=== PATIENT | female | born 1960 | race Caucasian/White ===

== ENCOUNTER → 2019-07-31 11:01 | Outpatient (CLI) | payer OTHER, SELFPAY ==
--- NOTE | ~2019-07-31 | XR_ITS ---
EXAMINATION: XR shoulder RT min 2V DATE: 07/31/2019 11:19 INDICATION: Right shoulder pain post fall TECHNIQUE: AP internally and externally rotated, AP oblique externally rotated and transscapular Y vi ews of the right shoulder were obtained. COMPARISON: None FINDINGS: Comminuted intra-articular fracture of the proximal right humerus. This includes an oblique fracture extending up to 13 cm distally from the apex of the humeral head into the proximal diaphysis. There i s also a fracture plane extending across the midportion of the articular surface with 8mm step off. M inimally displaced fracture across the base of the greater trochanter. Widening of the glenohumeral j oint space consistent with presence of a joint effusion. No other fractures. Normal alignment and min imal osteoarthritis at the acromioclavicular joint. IMPRESSION: Comminuted intra-articular fracture of the proximal right humerus with up to 8 mm step-off along a fr acture plane extending across the articular surface of the humeral head. Reviewed, dictated and finalized at location A. IMPRESSION: Comminuted intra-articular fracture of the proximal right humerus with up to 8 mm step-off along a fracture plane extending across the articular surface of th e humeral head.
== END ==
PROVIDERS: PCP Internal Medicine; Visit Provider Internal Medicine
DX: M25.519 Pain in unspecified shoulder (principal); S42.294A Other nondisplaced fracture of upper end of right humerus, initial encounter for closed fracture
CPT/HCPCS: 73030

== ENCOUNTER 2019-11-27 12:57 | Outpatient (CLI) | payer OTHER, SELFPAY ==
--- NOTE | ~2019-11-27 | US_ITS ---
US arterial ankle brachial ind INDICATION: Diabetes. High cholesterol. Discoloration of the lower extremities. Claudication. TECHNIQUE: Segmental pressures and plethysmographic and Doppler waveforms of the brachial and lower e xtremity arteries were obtained. COMPARISON: None. FINDINGS: Left brachial artery pressures of 182 mm Hg. There is a stent in the right arm and therefore pressure not obtained. The right ankle-brachial index (NOA) is 1.03 (normal >= 0.9-1.0). The right great toe-brachial index (TBI) is 0.7 (normal >= 0.60). The left NOA could not be obtained. The left TBI is 1.05 . There is biphasic flow lower extremity art eries bilaterally. IMPRESSION: 1. Normal right ankle and bilateral toe brachial indices. The left NOA could not be obtained. Reviewed, dictated and finalized at location A. IMPRESSION: 1. Normal right ankle and bilateral toe brachial indices. The left NOA could no t be obtained.
--- NOTE | ~2019-11-27 | MM_ITS ---
EXAMINATION: MM screening salas BI w margaret HISTORY: Screening mammogram TECHNIQUE: Craniocaudal and mediolateral oblique 3-D tomosynthesis images were obtained and synthetic 2-D images were generated. CAD analysis was submitted and interpreted. COMPARISON: , 06/2016, 10/22/2014 bilateral digital screening mammogram examinations BREAST PARENCHYMAL COMPOSITION: The breasts are almost entirely fatty. FINDINGS: There is no evidence of suspicious mass, calcification, or architectural distortion to sugg est malignancy in either breast. There has been no suspicious interval change. IMPRESSION: 1. No mammographic evidence of malignancy. 2. Recommend routine screening mammography in one year. BI-RADS Category 1: Negative Reviewed, dictated and finalized at location A.
== END 2019-11-27 12:58 | disposition home or self-care (01) ==
PROVIDERS: PCP Internal Medicine; Visit Provider Nurse Practitioner
DX: Z12.31 Encounter for screening mammogram for malignant neoplasm of breast (principal); I73.9 Peripheral vascular disease, unspecified
CPT/HCPCS: 77063; 77067; 93922

== ENCOUNTER 2021-03-25 07:17 | Outpatient (RCR) | payer OTHER, SELFPAY ==
[2021-02-25 09:44] VITALS: BMI 40.4
--- NOTE | 2021-02-25 09:53 | WPDWOUNDNOTE ---
Wound Care Note Date/Time: 02/25/21 09:53 Pt seen and examined in wound care clinic. Reports no further issues over last week. Pt reports no further drainage. Pt reports wound seems to be healing well. Assessment and Plan Assessment and plan (1) Chronic abdominal wound infection: Code(s): S31.109A - Unspecified open wound of abdominal wall, unspecified quadrant without penetration into peritoneal cavity, initial encounter; L08.9 - Local infection of the skin and subcutaneous tissue, unspecified Status: Acute Assessment and Plan: much improved, cont local wound care c silvergel, mucoprocin, f/u 1 mo Review of Systems Review of Systems: All systems reviewed & are unremarkable except as noted in HPI and below Exam Const: General: cooperative, comfortable and no acute distress Resp: Effort & Inspection: normal respiratory effort Auscultation: clear to auscultation bilaterally Cardio: Rate: regular rate Rhythm: regular rhythm GI: Inspection: normal to inspection GI Palp: No abdominal tenderness, Yes Soft to palpation and No Tenderness to palpation present (GI) Skin: Other: lower abd wound - measure 2 x 1.2 x 0.2 cm, good granulation tissue, no drainage, no s/s active infection
--- NOTE | 2021-03-25 09:57 | WPDWOUNDNOTE ---
Wound Care Note Date/Time: 03/25/21 09:57 Pt seen and examined in wound care clinic. Pt reports she is doing well and wound seem to have completely healed. Pt denies any further drainage or s/s infection. Pt reports some mild tenderness to palpation/pressure but otherwise no pain. Assessment and Plan Assessment and plan (1) Chronic abdominal wound infection: Code(s): S31.109A - Unspecified open wound of abdominal wall, unspecified quadrant without penetration into peritoneal cavity, initial encounter; L08.9 - Local infection of the skin and subcutaneous tissue, unspecified Status: Acute Assessment and Plan: healed, cont local wound care, f/u prn Review of Systems Review of Systems: All systems reviewed & are unremarkable except as noted in HPI and below Exam Const: General: cooperative, comfortable and no acute distress Skin: Other: lower abd wound - healed, no s/s infection, no drainage, minimal TTP
== END 2021-05-18 08:47 | disposition home or self-care (01) ==
LOC: ANHWOC 07:17
PROVIDERS: PCP Internal Medicine; Visit Provider Surgery
DX: S31.109D Unspecified open wound of abdominal wall, unspecified quadrant without penetration into peritoneal cavity, subsequent encounter (principal); L08.9 Local infection of the skin and subcutaneous tissue, unspecified; E66.01 Morbid (severe) obesity due to excess calories; Z68.41 Body mass index [BMI] 40.0-44.9, adult
CPT/HCPCS: 99212; A9270; G0463

== ENCOUNTER 2021-05-20 09:47 | Outpatient (CLI) | payer OTHER, SELFPAY ==
--- NOTE | ~2021-05-20 | MM_ITS ---
EXAMINATION: MM screening salas BI w margaret HISTORY: Screening TECHNIQUE: Craniocaudal and mediolateral oblique 3-D tomosynthesis images were obtained and synthetic 2-D images were generated. CAD analysis was submitted and interpreted. COMPARISON: Comparison to multiple prior studies sequentially, with oldest reviewed study dated 10/22. BREAST PARENCHYMAL COMPOSITION: Breast composed of scattered areas of fibroglandular density. FINDINGS: There is no evidence of suspicious mass, calcification, or architectural distortion to sugg est malignancy in either breast. There has been no suspicious interval change. IMPRESSION: 1. No mammographic evidence of malignancy. 2. Recommend routine screening mammography in one year. 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
== END 2021-05-20 09:48 | disposition home or self-care (01) ==
LOC: ANHIMG 09:49
PROVIDERS: PCP Internal Medicine; Visit Provider Nurse Practitioner
DX: Z12.31 Encounter for screening mammogram for malignant neoplasm of breast (principal)
CPT/HCPCS: 77063; 77067

== ENCOUNTER 2021-09-03 08:31 | Inpatient (IN) | payer OTHER, SELFPAY ==
[2021-09-03] VITALS (13 sets, daily range): BP systolic 116–134; BP diastolic 67–112; PULSE 91–136; RESP 16–21; TEMP 36.4–36.6; O2SAT 96–98
--- NOTE | ~2021-09-03 | CT_ITS ---
EXAMINATION: CT abdomen pelvis w con INDICATION: Abdominal pain TECHNIQUE: Computed tomographic images of the abdomen and pelvis were obtained after the administrati on of 100 cc of Omnipaque 350 intravenous contrast. The dose-length product (DLP) was 1597.81 mGy-cm. Automated exposure control and iterative reconstruction technique were employed. COMPARISON: None available FINDINGS: Cardiomegaly is noted. There is atelectasis of the visualized lung bases. The liver is diff usely low in attenuation when compared with the spleen, consistent with hepatic steatosis. The gallbl adder is surgically absent. Focal low-attenuation of the liver adjacent to the gallbladder fossa may be due to steatosis or sequela of cholecystectomy. The spleen, pancreas, and adrenal glands are anselmo l. The kidneys are unremarkable. There is calcified atherosclerosis of the aorta and many of the othe r arteries. No pathologically enlarged abdominal or pelvic lymph nodes are identified. There is no fr ee intraperitoneal gas or evidence of bowel obstruction. Colonic diverticulosis is present without ev idence of diverticulitis. The appendix is normal. Surgical changes are noted in the lumbar spine. IMPRESSION: 1. No CT correlate for the patient's symptoms. 2. Diverticulosis without evidence of diverticulitis. Reviewed, dictated and finalized at location B.
--- NOTE | ~2021-09-03 | XR_ITS ---
EXAMINATION: XR chest 2V DATE: 09/03/2021 09:09 INDICATION: Shortness of breath TECHNIQUE: AP and lateral views of the chest are obtained. COMPARISON: None available FINDINGS: There is mild atelectasis of the left lung base. There is no pleural effusion or pneumothor ax. The cardiomediastinal silhouette is normal. There is moderate thoracic spondylosis. Surgical clip s in the right upper quadrant are likely from prior cholecystectomy. Changes of right total shoulder arthroplasty are noted. IMPRESSION: 1. Mild atelectasis of the left lung base. Reviewed, dictated and finalized at location B.
--- NOTE | 2021-09-03 08:46 | ECG_ITS ---
Measurements Intervals [place] Rate: 136 P: [place]: 0 QRS: 16 QRSD: 90 T: 1 QT: 294 QTc: 444 Interpretive Statements ATRIAL FIBRILLATION WITH RAPID VENTRICULAR RESPONSE VOLTAGE CRITERIA FOR LVH NONSPECIFIC ST & T-WAVE ABNORMALITY- INF/LAT LEADS BASELINE ARTIFACT- V5 ABNORMAL ECG Electronically Signed On 09-03-2021 12:24:58 CDT by Kevin Frances D.O.
[2021-09-03 09:03] LABS: Basophils Absolute Auto 0.1 K/mm3 (0.0-0.1); Basophils Percent Auto 0.4 % (0.2-1.2); Eosinophils Percent Auto 0.1 % (0-4.4); Hematocrit 47.3 % (37.0-47.0); Immature Granulocyte Absolute 0.03 K/mm3 (0.00-0.031); Immature Granulocyte Percent A 0.2 % (0-0.5); Lymphocytes Absolute Auto 2.33 K/mm3 (0.9-3.2); Lymphocytes Percent Auto 16.8 % (18.3-44.2); Mean Corpuscular HGB Conc 29.6 g/dl (32-36); Mean Corpuscular Hemoglobin 23.2 pg (26-34); Mean Corpuscular Volume 78.3 fl (80-100); Monocytes Percent Auto 6.9 % (2.6-8.5); Neutrophils Absolute Auto 10.5 K/mm3 (1.3-6.7); Neutrophils Percent Auto 75.6 % (45.5-73.1); Platelet Count Result 308 k/mm3 (150-375); Red Blood Count 6.04 M/mm3 (4.2-5.4); Red Cell Distribution Width 16.7 % (11.5-14.5); White Blood Count 13.9 K/mm3 (4.5-10.0)
[2021-09-03 09:15] LABS: Alanine Aminotransferase 36 U/L (4-35); Albumin Level 5.2 g/dL (3.5-5.1); Alkaline Phosphatase 75 U/L (38-126); Anion Gap 17 mmol/L (8-16); Aspartate Amino Transferase 46 U/L (14-36); Bilirubin,Total 0.6 mg/dL (0.2-1.3); Blood Urea Nitrogen 14 mg/dL (7-17); Calcium 9.5 mg/dL (8.4-10.2); Carbon Dioxide 22 mmol/L (22-30); Chloride 100 mmol/L (98-107); Estimated CRCL calculation 101 ml/min; Estimated Glomerular Filt Rate > 60; Glucose 248 mg/dL (65-110); Lipase 61 U/L (23-300); Platelet Estimate Adequate (Adequate); Potassium 4.1 mmol/L (3.4-5.0); Sodium 139 mmol/L (137-145); Stomatocytes 1+ (NORMAL)
[2021-09-03 09:16] LABS: Anisocytosis 1+ (NORMAL)
[2021-09-03 09:18] LABS: INR 1.1; Prothrombin Time 13.3 Seconds (11.1-14.7)
[2021-09-03 09:19] LABS: Partial Thromboplastin Time 22.4 SECONDS (22.3-36.8)
--- NOTE | 2021-09-03 09:20 | ED.GENADULT ---
HPI - General Adult General Chief complaint: Shortness of Breath/Dyspnea Stated complaint: vomiting Time Seen by Provider: 09/03/21 08:55 Source: patient Mode of arrival: ambulatory Limitations: no limitations History of Present Illness HPI narrative: Patient is a 61-year-old female who presents the ED with report of nausea and vomiting. Patient reports she has not felt well for the past 3 days. She has been able to keep down some food and drink, but has had nausea and vomiting. She also reports having lower abdominal pain and diarrhea. No blood in the stool. No shortness of breath, chest pain, cough, cold symptoms, fever, chills, urinary symptoms. Patient noted to be in A. fib with RVR upon arrival to the ED. She does states she was told she had atrial fibrillation 3 years ago after an office visit. She is not on any anticoagulation or aspirin. Related Data Home Medications Medication Instructions Recorded Confirmed fluticasone propionate 50 2 spray NASAL DAILY PRN 09/23/20 07/23/21 mcg/actuation nasal spray,suspension Allergies Allergy/AdvReac Type Severity Reaction Status Date / Time codeine Allergy Severe Hives Verified 09/03/21 15:02 sulfamethizole Allergy Severe Hives Verified 09/03/21 15:02 trimethoprim Allergy Severe Hives Verified 09/03/21 15:02 Penicillins Allergy Mild Rash Verified 09/03/21 15:02 sulfamethoxazole Allergy Mild Vomiting Verified 09/03/21 15:02 levofloxacin AdvReac Severe Vomiting Verified 09/03/21 15:02 Review of Systems Review of Systems: CONSTITUTIONAL: Denies fever, chills. ENT: Denies rhinorrhea, congestion. CARDIOVASCULAR: Denies chest pain, palpitations, or edema. RESPIRATORY: Denies cough or dyspnea. GASTROINTESTINAL: Reports lower abdominal pain, nausea, vomiting, and diarrhea. Denies rectal bleeding GENITOURINARY: Denies dysuria or hematuria. SKIN: Denies rash or itching. MUSCULOSKELETAL: Denies back pain. NEUROLOGIC: Denies headache, numbness, or weakness. All systems reviewed & are unremarkable except as noted in HPI and below PMFSH Past Medical History Medical History Bilateral low back pain without sciatica Diabetic neuropathy associated with type 2 diabetes mellitus Hypertension associated with diabetes Obstructive sleep apnea Postmenopausal Surgical History Surgical History H/O: hysterectomy History of back surgery x3 History of cholecystectomy 1988 Status post reverse total arthroplasty of right shoulder Family History Family History Sibling Patient's sister is in good health Family history of lung cancer Patient's sister is Mother Family history of Alzheimer's disease Patient's mother is Father Family history of diabetes mellitus in first degree relative Patient's father is Diabetes mellitus Son No problems noted. Daughter No problems noted. Social History Social History Smoking packs per day: 0.75 Smoking cigarettes per day: 15.0 Years smoked: 15 Smoking pack-years: 11.25 Smoking status: Former smoker Tobacco type: cigarettes Second hand tobacco smoke exposure: Yes Smoking end date: 05/02/02 Alcohol intake: former Substance use: never Spiritual care concerns: No Exam Narrative: GENERAL: Mildly ill appearing, obese, in no acute distress. HEAD: Normocephalic, atraumatic. NECK: Supple. No adenopathy, no masses. RESPIRATORY: Airway patent, respirations nonlabored. Clear to auscultation bilaterally, no rales, rhonchi, wheezing. CARDIOVASCULAR: Tachycardic with irregular rhythm without murmurs, rubs, or gallops. Radial pulses 2+ and equal bilaterally. ABDOMINAL: Soft, mild tenderness palpation in left lower quadrant and suprapubic abdomen, nondistended, no hepatos
[2021-09-03] MEDS: METOPROLOL TARTRATE INJ 5 MG/5 ML VIAL IV PUSH (09:23)
[2021-09-03 09:25] LABS: Troponin I < 0.012 ng/mL (0.000-0.034)
[2021-09-03] MEDS: SODIUM CHLORIDE 0.9% IV 1,000 ML 999 ML IV CONT (09:46)
[2021-09-03] MEDS: ONDANSETRON INJ 4 MG/2 ML VIAL IV PUSH ×2 (09:46→20:00)
[2021-09-03 10:42] LABS: SARS-CoV-2 RNA PCR Negative
[2021-09-03] MEDS: METOCLOPRAMIDE HCL INJ 10 MG/2 ML VIAL IV PUSH (11:59)
[2021-09-03] MEDS: METOPROLOL TARTRATE 25 MG TABLET PO ×2 (11:59→21:59)
[2021-09-03 12:07] LABS: Glucose Point of Care 173 mg/dl (65-105)
[2021-09-03 12:26] LABS: Troponin I < 0.012 ng/mL (0.000-0.034)
--- NOTE | 2021-09-03 14:53 | ADMGEN ---
This patient, Keely Puga, was admitted to 3 [facility] Surg Room 319-01. Patient/family oriented to hospital policies and general routines including ID bracelet, bed and alarms, visiting hours, pain management, procedures, bathroom and other care routines, personal items, smoking policy, room service/diet, and visiting hours. Placed on bus driver/monitor per MD orders, reviewed plan of care. at bedside. Information on how to activate the Rapid Response Team has been discussed. Patient/Family are encouraged to report perceived risks to care and to ask questions if they do not understand what they are told or what they should do.
--- NOTE | 2021-09-03 15:00 | PM.IMHP ---
H&P: HPI History of Present Illness Date/Time: 09/03/21 15:00 Chief Complaint: Shortness of breath and vomiting. 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 She is a fair historian but from what I can gather she has not felt well for nearly 1 week with intermittent nausea, vomiting, and loose stools a couple of times a day. She has not been eating much and her emesis is just after trying to drink some water though on occasion she vomits better, yellow stomach acid. She also reports a vague discomfort diffusely throughout the lower abdomen that she cannot further qualify. The last 2 days she has been feeling short of breath and intermittent sensations of her heart racing which prompted her to come in today. She was found to be in atrial fibrillation with rapid ventricular response on arrival to the ER and her rate has improved significantly with IV Lopressor 5 mg x 1 and p.o. metoprolol tartrate 25 mg x 1. She is resting comfortably at the time my evaluation however she continues to feel nauseated. She denies fever, chills, sweats, sick contacts, recent travel, recent antibiotic use, chest pain, pleuritic pain, cough, orthopnea, paroxysmal nocturnal dyspnea, edema, syncope, near syncope, hematemesis, melena, and hematochezia. She does endorse suprapubic abdominal discomfort and darker colored urine but no overt dysuria. She has no history of peptic ulcers or gastroparesis. She states compliance with her CPAP she does not drink excess caffeine or alcohol. No known history of thyroid disease. Review of Systems Review of Systems: Twelve systems were reviewed. No blurry vision, polyuria, or polydipsia. Hemoglobin A1c in June 2021 was 8.5%. She does have neuropathy in her lower extremities. No history of gastroparesis or kidney disease. No history of cardiac disease. Except as documented, all other systems were reviewed and are negative. [facility] Past Medical History Medical History (Updated 09/03/21 @ 22:11 by Sobeida Smith PA-C) Bilateral low back pain without sciatica Diabetic neuropathy associated with type 2 diabetes mellitus Hypertension Insulin dependent type 2 diabetes mellitus Morbid obesity Obstructive sleep apnea Obstructive sleep apnea on CPAP Paroxysmal atrial fibrillation Peripheral arterial disease Postmenopausal Surgical History Surgical History (Updated 09/03/21 @ 22:07 by Sobeida Smith PA-C) History of back surgery x3 History of cholecystectomy (1987) History of hysterectomy Status post reverse total arthroplasty of right shoulder Family History Family History Sibling Patient's sister is in good health Family history of lung cancer Patient's sister is Mother Family history of Alzheimer's disease Patient's mother is Father Family history of diabetes mellitus in first degree relative Patient's father is Diabetes mellitus Son No problems noted. Daughter No problems noted. Social History Social History (Updated 09/03/21 @ 22:08 by Sobeida Smith PA-C) Social History: Surrogate decision maker: Esvin Puga, spouse. Code status: Full code. Smoking packs per day: 0.75 Smoking cigarettes per day: 15.0 Years smoked: 15 Smoking pack-years: 11.25 Smoking status: Former smoker Tobacco type: cigarettes Second hand tobacco smoke exposure: Yes Smoking end date: 05/02/02 Alcohol intake: former Substance use: never Additional living arrangements comments: The patient lives with her in [place]. Spiritual care concerns: No Meds Home Medications and Allergies Home Medications Medication I
--- NOTE | 2021-09-03 15:25 | PCCCNOTE ---
On 09/03/21, the student, [Josie Rivera], provided care and completed [facility] documentation on this patient. I have reviewed the student's documentation and agree with the findings.
[2021-09-03 15:54] LABS: Troponin I < 0.012 ng/mL (0.000-0.034)
--- NOTE | 2021-09-03 16:11 | PM.CNCAR ---
Assessment and Plan Assessment and plan (1) Hypertension associated with diabetes: Code(s): E11.59 - Type 2 diabetes mellitus with other circulatory complications; I15.2 - Hypertension secondary to endocrine disorders Status: Acute Assessment and Plan: A1c is above goal. Blood pressure is reasonably controlled. (2) Atrial fibrillation with RVR: Code(s): I48.91 - Unspecified atrial fibrillation Status: Acute Assessment and Plan: Patient has atrial fibrillation with rapid ventricular response. Unknown onset and length of duration. She states that she was told about atrial fibrillation 3 years ago or so but has not had any workup that she is aware of. This is a bit surprising but regardless likely she has not had a neurological event at this point. She has a chads Vasc score of 3 because of her diabetes, hypertension and gender. Anticoagulation is recommended. For now I am going to start her on enoxaparin 1 milligram/kilogram subQ q.12 hours until her nausea vomiting diarrhea resolve. This is in case she needs to have surgery for some reason because of her other symptoms. I did talk to her the risks benefits alternatives of anticoagulation and she verbalized understanding and is agreeable. Once it is determined that she does not need surgery for any reason, will transition her enoxaparin to a direct oral anticoagulant. I also talked to her about warfarin. Decision is made to start her on Xarelto at 20 mg daily after discontinue the enoxaparin as detailed above. Will also rate control her for now with metoprolol at 25 mg p.o. b.i.d.. She will need an outpatient Lexiscan stress test to complete the workup. Will order 2D echocardiogram with Doppler now. Order a TSH, free T4 level as well as a magnesium level. (3) Morbid obesity with BMI of 40.0-44.9, adult: Code(s): E66.01 - Morbid (severe) obesity due to excess calories; Z68.41 - Body mass index [BMI] 40.0-44.9, adult Status: Acute Assessment and Plan: Dietary and lifestyle modifications for weight loss. (4) Nausea & vomiting: Qualifiers: Vomiting type: unspecified Qualified Code(s): R11.2 - Nausea with vomiting, unspecified Code(s): R11.2 - Nausea with vomiting, unspecified Status: Acute Assessment and Plan: Uncertain etiology. Workup per GI versus hospitalist (5) Obstructive sleep apnea: Code(s): G47.33 - Obstructive sleep apnea (adult) (pediatric) Status: Acute Assessment and Plan: On CPAP at home. Will consult respiratory therapy to have them set up inpatient CPAP while she is hospitalized. History of Present Illness History of Present Illness Consult date/time: 09/03/21 16:11 Requesting physician: Corine Ames PA-C Consult reason: atrial fibrillation Reason For Visit: AFIB w/RVR, N/V, DM Narrative: Date of service 09/03/2021, Reason for consultation: Atrial fibrillation Requesting provider: Corine Ames History: Patient is a 61-year-old female who came to hospital because of nausea vomiting diarrhea. She has not felt very well for about 3 days. No sick contacts. While in the emergency room though she was found to be in atrial fibrillation with rapid ventricular response she was admitted for combination of GI symptoms as well as the atrial fibrillation. She states that she has a history of atrial fibrillation and was told about an irregular heartbeat about 3 years ago but she is not on anticoagulation or aspirin and she has not had any cardiac workup that she is aware of. She does have a history of sleep apnea, obesity, hypertension and diabetes. She also has diverticulosis but has no bleeding issues at this point. She denies any chest pain, syncope, presyncope, palpitations, edema or shortness of breath. She does have paroxysmal nocturnal dyspnea. Review of Systems Review of Systems: All systems reviewed & are unremarkable except as noted in HPI and below Const
[2021-09-03 16:27] LABS: Glucose Point of Care 157 mg/dl (65-105)
[2021-09-03] MEDS: ENOXAPARIN 120 MG/0.8 ML SYRINGE 113 MG SUB-Q (17:16)
[2021-09-03 18:55] LABS: Magnesium 1.7 mg/dL (1.6-2.3)
[2021-09-03] MEDS: SODIUM CHLORIDE 0.9% IV 1,000 ML 100 ML IV CONT (23:10)
[2021-09-03 23:45] LABS: Glucose Point of Care 137 mg/dl (65-105)
[2021-09-04] VITALS (10 sets, daily range): BP systolic 127–158; BP diastolic 77–83; PULSE 81–98; RESP 17–18; TEMP 36.1–36.3; O2SAT 98–100
--- NOTE | 2021-09-04 | ECHO_ITS ---
Patient Info Name: Keely Puga Age: 61 years : 1960 Gender: Female Ht: 64 in Wt: 259 lbs BSA: 2.37 m2 HR: 93 bpm BP: 127 / 77 mmHg Heart Rhythm: Atrial Fibrillation Technical Quality: Poor Exam Date: 09/04/2021 9:16 AM Exam Location: [facility] Pulmonary Exam Room: [facility] Patient Status: Inpatient Admit Date: 09/03/2021 Staff Ordering Physician: Marcelino Galvan MD Wind Turbine Performance Engineer: Darlene Liu RDCS Attending Provider: Terrance Luu MD Referring Physician: Mandy KAM; Exam Type: CA echo dop color flow w con Study Info Indications - AFIB Complete two-dimensional, color flow and Doppler transthoracic echocardiogram is performed with contrast to opacify the left ventricle and to improve the deliniation of the left ventricle endocardial borders. Reason for Poor Study: patient body habitus Summary 1. Left ventricular chamber dimension is normal. 2. Left ventricular systolic function is normal, estimated at 65-70%. 3. There is mildly increased left ventricular wall thickness. 4. The left ventricular diastolic function is abnormal. 5. Right ventricular chamber dimension is mildly enlarged. 6. Left atrial chamber dimension is moderately enlarged. 7. There is mild tricuspid valve regurgitation. Left Ventricle Left ventricular chamber dimension is normal. Left ventricular systolic function is normal, estimated at 65-70%. There is mildly increased left ventricular wall thickness. The left ventricular diastolic function is abnormal. Right Ventricle Right ventricular chamber dimension is mildly enlarged. Right ventricular systolic function is normal. Left Atria Left atrial chamber dimension is moderately enlarged. Right Atria Right atrial chamber dimension is normal. Atrial Septum Intact interatrial septum visualized by color flow imaging. Aortic Valve The aortic valve is not well visualized. There is mild aortic valve sclerosis. There is no aortic valve stenosis. There is trace aortic valve regurgitation. Pulmonic Valve The pulmonic valve is normal. There is no pulmonic valve stenosis. There is trace pulmonic regurgitation. Mitral Valve The mitral valve has normal leaflets. There is no mitral valve stenosis. There is trace mitral valve regurgitation. Tricuspid Valve The tricuspid valve leaflets are normal. There is no significant tricuspid valve stenosis. There is mild tricuspid valve regurgitation. No pulmonary hypertension, estimated pulmonary arterial systolic pressure is 34 mmHg. Pericardium/Pleural The pericardium appears normal. There is no pericardial effusion. Inferior Vena Cava Normal inferior vena cava with >50% collapse upon inspiration consistent with normal right atrial pressure, 8 mmHg. Aorta The aortic root size at the sinus of Valsalva is normal. Left Ventricular Outflow Tract Name Value Normal LVOT 2D LVOT Diameter 2.04 cm LVOT Doppler LVOT Peak Gradient 5 mmHg LVOT Mean Gradient 3 mmHg LVOT VTI 20.23 cm LVOT VTI/AV V
[2021-09-04] MEDS: ENOXAPARIN 120 MG/0.8 ML SYRINGE 113 MG SUB-Q ×2 (05:36→17:09)
[2021-09-04 07:07] LABS: Hematocrit 44.3 % (37.0-47.0); Hemoglobin 13.3 g/dL (12.0-15.0); Mean Corpuscular Hemoglobin 23.8 pg (26-34); Mean Corpuscular Volume 79.1 fl (80-100); Platelet Count Result 315 k/mm3 (150-375); Red Cell Distribution Width 15.9 % (11.5-14.5)
[2021-09-04 07:29] LABS: Alanine Aminotransferase 31 U/L (4-35); Albumin Level 4.4 g/dL (3.5-5.1); Alkaline Phosphatase 56 U/L (38-126); Anion Gap 10 mmol/L (8-16); Aspartate Amino Transferase 48 U/L (14-36); Bilirubin,Total 0.5 mg/dL (0.2-1.3); Blood Urea Nitrogen 15 mg/dL (7-17); Calcium 8.6 mg/dL (8.4-10.2); Carbon Dioxide 26 mmol/L (22-30); Chloride 103 mmol/L (98-107); Estimated CRCL calculation 101 ml/min; Estimated Glomerular Filt Rate > 60; Glucose 133 mg/dL (65-110); Magnesium 1.9 mg/dL (1.6-2.3); Potassium 4.1 mmol/L (3.4-5.0); Sodium 139 mmol/L (137-145)
[2021-09-04 07:44] LABS: Free T4 Free Thyroxine 1.24 ng/mL (0.78-2.19)
[2021-09-04] MEDS: METOPROLOL TARTRATE 25 MG TABLET PO ×2 (08:00→20:57)
[2021-09-04 08:15] LABS: Glucose Point of Care 152 mg/dl (65-105)
[2021-09-04] MEDS: CIPROFLOXACIN 400 MG/D5W 200ML 200 ML 200 MG IVPB ×2 (08:56→17:08)
[2021-09-04] MEDS: ONDANSETRON INJ 4 MG/2 ML VIAL IV PUSH ×2 (09:31→17:08)
[2021-09-04] MEDS: PERFLUTREN LIPID MICROSPHERES 1.5 ML VIAL DILUTED TO 10 ML TOTAL VOLUME IV PUSH (09:42)
--- NOTE | 2021-09-04 09:42 | IVDEFINITY ---
Prior to administration of IV Definity the patient was educated on the risks and benefits of the imaging enhancing agent including potential adverse side effects. The patient verbalized understanding. Allergies were verified. No exclusion criteria were identified and at least one of the following inclusion criteria were met: 1) physician request, 2) patient technically difficult to image (per the [place] [employer] guidelines of two or more segments not discernable within the apical view), or 3) questionable left ventricular function. ?
[2021-09-04] MEDS: metroNIDAZOLE 500 MG/ISO 100ML 500 MG/100 ML BAG 100 MG IVPB ×2 (10:04→17:08)
--- NOTE | 2021-09-04 10:13 | PM.PNCARD ---
Progress Note: A&P Assessment and Plan (1) Atrial fibrillation with RVR: Code(s): I48.91 - Unspecified atrial fibrillation Status: Acute Assessment and Plan: Patient has atrial fibrillation with rapid ventricular response. Unknown onset and length of duration. For now I am going to start her on enoxaparin 1 milligram/kilogram subQ q.12 hours until her nausea vomiting diarrhea resolve. This is in case she needs to have surgery for some reason because of her other symptoms. I did talk to her the risks benefits alternatives of anticoagulation and she verbalized understanding and is agreeable. Once it is determined that she does not need surgery for any reason, will transition her enoxaparin to a direct oral anticoagulant. I also talked to her about warfarin. Decision is made to start her on Xarelto at 20 mg daily after discontinue the enoxaparin as detailed above. Will also rate control her for now with metoprolol at 25 mg p.o. b.i.d.. She will need an outpatient Lexiscan stress test to complete the workup. Echo has been performed, results are pending. TSH, Mag WNL Anticoagulation is recommended CHADSVASc score is at least 3. Continue enoxaparin until nausea, vomiting, and diarrhea resolve. Once it is determined that she will not need any type of surgery she can be shifted to a DOAC Continue rate control with metoprolol (2) Hypertension associated with diabetes: Code(s): E11.59 - Type 2 diabetes mellitus with other circulatory complications; I15.2 - Hypertension secondary to endocrine disorders Status: Acute Assessment and Plan: A1c is above goal. Blood pressure is reasonably controlled. (3) Morbid obesity with BMI of 40.0-44.9, adult: Code(s): E66.01 - Morbid (severe) obesity due to excess calories; Z68.41 - Body mass index [BMI] 40.0-44.9, adult Status: Acute Assessment and Plan: Dietary and lifestyle modifications for weight loss. (4) Nausea & vomiting: Qualifiers: Vomiting type: unspecified Qualified Code(s): R11.2 - Nausea with vomiting, unspecified Code(s): R11.2 - Nausea with vomiting, unspecified Status: Acute Assessment and Plan: Uncertain etiology. Workup per GI versus hospitalist (5) Obstructive sleep apnea: Code(s): G47.33 - Obstructive sleep apnea (adult) (pediatric) Status: Acute Assessment and Plan: On CPAP at home. Will consult respiratory therapy to have them set up inpatient CPAP while she is hospitalized. Subjective Date/time seen: 09/04/21 10:13 Cardiology follow up for atrial fibrillation Complaining of some lower back pain today. Continues to have diarrhea. Denying any chest pain, shortness of breath, palpitations. Review of Systems Review of Systems: All systems reviewed & are unremarkable except as noted in HPI and below Constitutional: Constitutional: Denies excessive sweating, Denies fatigue, Denies headache(s) and Denies weakness Eyes: Eyes: Denies blurry vision ENT: Reports Normal hearing present, Denies headache(s) and Denies neck pain Cardiovascular: Cardiovascular: Denies chest pain, Denies pedal edema, Denies leg edema and Denies dyspnea Respiratory: Respiratory: Denies dyspnea Gastrointestinal: Gastrointestinal: Reports diarrhea and Reports vomiting Genitourinary: Genitourinary: Denies hematuria and Denies flank pain Musculoskeletal: Musculoskeletal: Denies neck pain Integumentary/Breasts: Skin/Breast: Denies unusual bruising Neurologic: Reports Normal hearing present, Denies confusion, Denies headache(s) and Denies weakness Psychiatric: Psychiatric: Denies anxiety and Denies confusion Endocrine: Endocrine: Denies excessive sweating and Denies fatigue Hematologic/Lymphatic: Hematologic/Lymphatic: Denies easy bleeding Allergic/Immunologic: Allergic/Immunologic: Denies GI upset with certain foods Exam Narrative: Patient awake alert oriented. Appears state
--- NOTE | 2021-09-04 11:02 | PCCCNOTE ---
PATIENT COMPLAINED OF BACK PAIN POST DEFINITY ADMINISTRATION PROCEDURE EXPLAINED TO PATIENT AND NURSE WAS NOTIFIED OF HER SYMPTOMS. SYMPTOMS RELIEVED AFTER 10 MINUTES OF OBSERVATION . CHAN RAUSCH
--- NOTE | 2021-09-04 12:22 | PM.IMPN ---
Progress Note: A&P Assessment and Plan (1) Atrial fibrillation with rapid ventricular response: Code(s): I48.91 - Unspecified atrial fibrillation Status: Resolved Assessment and Plan: Monitor vital signs, I&Os, neuro status, patient is a fall risk and patient is a bleeding risk Monitor PTT, Serum electrolytes, and cbc Keep serum potassium >4 and keep magnesium >2 Monitor anticoagulation therapy Consult Cardiology for further management, appreciate assistance and recommendations Obtain echocardiogram Patient continues with metoprolol 25 mg b.i.d. DVT Px: Therapeutic Lovenox will be transitioned to Xarelto 20 mg daily pending insurance approval [facility] (2) Nausea & vomiting: Qualifiers: Vomiting type: unspecified Qualified Code(s): R11.2 - Nausea with vomiting, unspecified Code(s): R11.2 - Nausea with vomiting, unspecified Status: Acute Assessment and Plan: Monitor serum electrolytes, CBC, hemoglobin/hematocrit q.8 hours. If hemoglobin drops below 7 transfuse packed red blood cells Monitor for bloody bowel movements,chest pain,SOB or dizziness/lightheadedness Consulted GI for intractable nausea and vomiting with associated diarrhea, appreciate assistance and recommendations Pantoprazole BID Diet: NPO Continue supportive care with antiemetics (3) Insulin dependent type 2 diabetes mellitus: Code(s): E11.9 - Type 2 diabetes mellitus without complications; Z79.4 - [facility] (current) use of insulin Status: Acute Assessment and Plan: Hemoglobin A1c within the last month or so was 8.2%. Continue basal insulin. Initiate sliding scale insulin, Accu-Cheks, and hypoglycemic protocol. (4) Hypertension: Code(s): I10 - Essential (primary) hypertension Status: Acute Assessment and Plan: Blood pressures were reviewed and they are well controlled. (5) Obstructive sleep apnea on CPAP: Code(s): G47.33 - Obstructive sleep apnea (adult) (pediatric); Z99.89 - Dependence on other enabling machines and devices Status: Acute Assessment and Plan: CPAP will be provided for the patient to use while hospitalized. Subjective Date/time seen: 09/04/21 12:22 The patient is alert and oriented x4. Cardiology was able to discuss AFib and treatment for AFib with the patient this morning. While into the wound the patient was starting to take her home medications from a zip lock bag. Patient did not take any of her medications beFore consumption. Discussed consulting Gastroenterology for further evaluation intractable nausea vomiting and diarrhea. Patient was started on Cipro and Flagyl. Pending stool samples. Patient denies any recent travel outside the country. Patient did recently return from [place] although denies any recent sick contacts. Denies any hematochezia or melena. No acute events reported by RN during the night. Review of Systems Review of Systems: All systems reviewed & are unremarkable except as noted in HPI and below Exam Narrative: General: Chronically ill-appearing female sitting up in bed in no distress. Weight: 113.6 kg. BMI: 43. HEENT: PERRL, EOMI. Sclerae anicteric. Oral mucosa moist. Tacky mucous membranes. Oropharynx crowded. Neck: Supple. Exam a bit limited due to neck circumference. No obvious JVD, bruits, or thyromegaly. Respiratory: Respirations are nonlabored and lungs are clear to auscultation. Cardiovascular: Irregularly irregular rate and rhythm. No obvious murmur. Gastrointestinal: Abdomen is soft, morbidly obese, and nondistended with positive bowel sounds. She is tender to palpation over the lower abdomen, mainly about the panniculus. No erythema or wounds noted. Skin: Warm and dry. No rash or lesions on limited exam. Extremities: No cyanosis, clubbing, or edema. Radial and pedal pulses intact. Neurological: Alert. Cranial nerves 2-12 are grossly intact. No gross focal deficits to casual
[2021-09-04 12:57] LABS: Glucose Point of Care 152 mg/dl (65-105)
--- NOTE | 2021-09-04 14:43 | PCCCNOTE ---
On 09/04/21, the student, [Oliva Rivera], provided care and completed [facility] documentation on this patient. I have reviewed the student's documentation and agree with the findings.
[2021-09-04 16:31] LABS: Glucose Point of Care 141 mg/dl (65-105)
--- NOTE | 2021-09-04 18:49 | WPDGICN ---
Assessment and Plan Assessment and plan (1) Nausea & vomiting: Qualifiers: Vomiting type: unspecified Qualified Code(s): R11.2 - Nausea with vomiting, unspecified Code(s): R11.2 - Nausea with vomiting, unspecified Status: Acute Assessment and Plan: n/v for last 3 days antiemetics prn and medical treatment based on clinical course may need egd ? pud, gastroparesis (h/o dm but denies chronic nausea), etc (2) Diabetic neuropathy associated with type 2 diabetes mellitus: Code(s): E11.40 - Type 2 diabetes mellitus with diabetic neuropathy, unspecified Status: Acute Assessment and Plan: on insulin (3) Atrial fibrillation with rapid ventricular response: Code(s): I48.91 - Unspecified atrial fibrillation Status: Resolved Assessment and Plan: treated and cardiology on board (4) Hypertension associated with diabetes: Code(s): E11.59 - Type 2 diabetes mellitus with other circulatory complications; I15.2 - Hypertension secondary to endocrine disorders Status: Acute (5) Obstructive sleep apnea: Code(s): G47.33 - Obstructive sleep apnea (adult) (pediatric) Status: Acute (6) Morbid obesity with BMI of 40.0-44.9, adult: Code(s): E66.01 - Morbid (severe) obesity due to excess calories; Z68.41 - Body mass index [BMI] 40.0-44.9, adult Status: Acute GI Consult Note Consult date/time: 09/04/21 18:49 Reason for consult: n/v HPI: Keely Puga is a 61 year old female with history of atrial fibrillation several years ago, insulin-dependent type 2 diabetes mellitus with peripheral neuropathy, hyperlipidemia, GERD, and obstructive sleep apnea on CPAP who came to the emergency department for evaluation of shortness of breath, nausea, and vomiting. She says that has been sick for last 3 days which is unusual, finally she came here. Also found to be on Afib with RVR but treated medically and now cardiology on board. She is still nauseous. She says that had egd but years ago, denies melena, no weight loss. Review of Systems Constitutional: Constitutional: Denies chills Eyes: Eyes: Reports no additional eye complaints ENT: Reports Normal hearing present Cardiovascular: Cardiovascular: Reports palpitations Respiratory: Respiratory: Denies dyspnea Gastrointestinal: Gastrointestinal: Reports nausea and Reports vomiting Genitourinary: Genitourinary: Denies hematuria Musculoskeletal: Musculoskeletal: Denies neck pain Integumentary/Breasts: Skin/Breast: Denies dry skin Neurologic: Denies headache(s) Psychiatric: Psychiatric: Denies behavioral changes [facility] Past Medical History Medical History (Updated 09/03/21 @ 22:11 by Sobeida Smith PA-C) Bilateral low back pain without sciatica Diabetic neuropathy associated with type 2 diabetes mellitus Hypertension Insulin dependent type 2 diabetes mellitus Morbid obesity Obstructive sleep apnea Obstructive sleep apnea on CPAP Paroxysmal atrial fibrillation Peripheral arterial disease Postmenopausal Surgical History Surgical History (Updated 09/03/21 @ 22:07 by Sobeida Smith PA-C) History of back surgery x3 History of cholecystectomy (1987) History of hysterectomy Status post reverse total arthroplasty of right shoulder Family History Family History Sibling Patient's sister is in good health Family history of lung cancer Patient's sister is Mother Family history of Alzheimer's disease Patient's mother is Father Family history of diabetes mellitus in first degree relative Patient's father is Diabetes mellitus Son No problems noted. Daughter No problems noted. Social History Social History (Updated 09/03/21 @ 22:08 by Sobeida Smith PA-C) Social History: Surrogate decision maker: Esvin Puga, spouse. Code status: Full code. Smoking packs
[2021-09-04 20:06] LABS: Glucose Point of Care 166 mg/dl (65-105)
[2021-09-05] VITALS (11 sets, daily range): BP systolic 136–144; BP diastolic 56–84; PULSE 65–102; RESP 14–20; TEMP 35.9–36.8; O2SAT 90–98
[2021-09-05] MEDS: CIPROFLOXACIN 400 MG/D5W 200ML 200 ML 200 MG IVPB ×3 (00:23→17:16)
[2021-09-05] MEDS: metroNIDAZOLE 500 MG/ISO 100ML 500 MG/100 ML BAG 100 MG IVPB ×3 (01:25→17:15)
[2021-09-05 07:12] LABS: Basophils Absolute Auto 0.1 K/mm3 (0.0-0.1); Basophils Percent Auto 0.6 % (0.2-1.2); Eosinophils Percent Auto 0.4 % (0-4.4); Hematocrit 41.6 % (37.0-47.0); Hemoglobin 12.7 g/dL (12.0-15.0); Immature Granulocyte Absolute 0.06 K/mm3 (0.00-0.031); Immature Granulocyte Percent A 0.6 % (0-0.5); Lymphocytes Absolute Auto 2.84 K/mm3 (0.9-3.2); Lymphocytes Percent Auto 26.1 % (18.3-44.2); Mean Corpuscular HGB Conc 30.5 g/dl (32-36); Mean Corpuscular Hemoglobin 23.8 pg (26-34); Mean Corpuscular Volume 77.9 fl (80-100); Mean Platelet Volume 10.5 fl (7.4-10.4); Monocytes Absolute Auto 0.9 K/mm3 (0.1-0.6); Monocytes Percent Auto 7.8 % (2.6-8.5); Neutrophils Percent Auto 64.5 % (45.5-73.1); Platelet Count Result 261 k/mm3 (150-375); Red Blood Count 5.34 M/mm3 (4.2-5.4); Red Cell Distribution Width 15.7 % (11.5-14.5); White Blood Count 10.9 K/mm3 (4.5-10.0)
[2021-09-05 07:21] LABS: Lactic Acid Reflex 0.9 mmol/L (0.7-2.0)
[2021-09-05 07:30] LABS: Alanine Aminotransferase 40 U/L (4-35); Albumin Level 4.3 g/dL (3.5-5.1); Alkaline Phosphatase 60 U/L (38-126); Anion Gap 9 mmol/L (8-16); Aspartate Amino Transferase 54 U/L (14-36); Bilirubin,Total 0.4 mg/dL (0.2-1.3); Blood Urea Nitrogen 12 mg/dL (7-17); Calcium 8.6 mg/dL (8.4-10.2); Carbon Dioxide 27 mmol/L (22-30); Chloride 101 mmol/L (98-107); Estimated CRCL calculation 87 ml/min; Estimated Glomerular Filt Rate > 60; Glucose 138 mg/dL (65-110); Potassium 3.9 mmol/L (3.4-5.0); Sodium 137 mmol/L (137-145)
[2021-09-05 07:54] LABS: Glucose Point of Care 161 mg/dl (65-105)
[2021-09-05] MEDS: METOPROLOL TARTRATE 25 MG TABLET PO ×2 (08:06→21:49)
[2021-09-05] MEDS: PANTOPRAZOLE SODIUM IV 40 MG VIAL IV PUSH (10:14)
[2021-09-05] MEDS: ONDANSETRON INJ 4 MG/2 ML VIAL IV PUSH (10:14)
[2021-09-05 11:29] LABS: Glucose Point of Care 190 mg/dl (65-105)
--- NOTE | 2021-09-05 12:08 | PM.IMPN ---
Progress Note: A&P Assessment and Plan (1) Atrial fibrillation with rapid ventricular response: Code(s): I48.91 - Unspecified atrial fibrillation Status: Resolved Assessment and Plan: Monitor vital signs, I&Os, neuro status, patient is a fall risk and patient is a bleeding risk Monitor PTT, Serum electrolytes, and cbc Keep serum potassium >4 and keep magnesium >2 Monitor anticoagulation therapy Consuledt Cardiology for further management, appreciate assistance and recommendations echocardiogram reviewed revealed diastolic dysfunction LVEF 65-70%. Patient continues with metoprolol 25 mg b.i.d. DVT Px: Therapeutic Lovenox will be transitioned to Xarelto 20 mg daily pending insurance approval [facility] (2) Nausea & vomiting: Qualifiers: Vomiting type: unspecified Qualified Code(s): R11.2 - Nausea with vomiting, unspecified Code(s): R11.2 - Nausea with vomiting, unspecified Status: Acute Assessment and Plan: Monitor serum electrolytes, CBC, hemoglobin/hematocrit q.8 hours. If hemoglobin drops below 7 transfuse packed red blood cells Monitor for bloody bowel movements,chest pain,SOB or dizziness/lightheadedness Consulted GI for intractable nausea and vomiting with associated diarrhea, appreciate assistance and recommendations Pantoprazole BID Diet: NPO Continue supportive care with antiemetics (3) Insulin dependent type 2 diabetes mellitus: Code(s): E11.9 - Type 2 diabetes mellitus without complications; Z79.4 - [employer] (current) use of insulin Status: Acute Assessment and Plan: Hemoglobin A1c within the last month or so was 8.2%. Continue basal insulin. Initiate sliding scale insulin, Accu-Cheks, and hypoglycemic protocol. (4) Hypertension: Code(s): I10 - Essential (primary) hypertension Status: Acute Assessment and Plan: Blood pressures were reviewed and they are well controlled. (5) Obstructive sleep apnea on CPAP: Code(s): G47.33 - Obstructive sleep apnea (adult) (pediatric); Z99.89 - Dependence on other enabling machines and devices Status: Acute Assessment and Plan: CPAP will be provided for the patient to use while hospitalized. Subjective Date/time seen: 09/05/21 12:08 Patient continues to be alert and oriented although she has been sneaking fluids from the sink due to her bring her cup of water despite her being NPO. Patient has therefore resulted in more vomiting. Discussed the benefits of avoiding further oral intake and as nursing to remove styrofoam cup at bedside. Patient continues to receive IV antibiotics antiemetics and she has been started on Protonix by Gastroenterology. Pending further recommendations by GI. Review of Systems Review of Systems: All systems reviewed & are unremarkable except as noted in HPI and below Exam Narrative: General: Chronically ill-appearing female sitting up in bed in no distress. Weight: 113.6 kg. BMI: 43. HEENT: PERRL, EOMI. Sclerae anicteric. Oral mucosa moist. Tacky mucous membranes. Oropharynx crowded. Neck: Supple. Exam a bit limited due to neck circumference. No obvious JVD, bruits, or thyromegaly. Respiratory: Respirations are nonlabored and lungs are clear to auscultation. Cardiovascular: Irregularly irregular rate and rhythm. No obvious murmur. Gastrointestinal: Abdomen is soft, morbidly obese, and nondistended with positive bowel sounds. She is tender to palpation over the lower abdomen, mainly about the panniculus. No erythema or wounds noted. Skin: Warm and dry. No rash or lesions on limited exam. Extremities: No cyanosis, clubbing, or edema. Radial and pedal pulses intact. Neurological: Alert. Cranial nerves 2-12 are grossly intact. No gross focal deficits to casual conversation. Psychiatric: Appropriate mood and affect. Objective Data Vital Signs Vital Signs: Vital Signs - 24 hr 09/04/21 14:00 09/04/21 16:00
[2021-09-05 13:39] LABS: Appearance Urine Slightly Cloudy (Clear); Bilirubin Urine 2+ (Negative); Glucose Urine UA Negative (Negative); Ketones Urine 3+ mg/dL (Negative); Leukocyte Esterase Ur Negative LEU/UL (NEGATIVE); Nitrate Urine Negative (Negative); Protein Urine Trace mg/dL (Negative); Specific Grav Ur >= 1.030 (1.001-1.035); Urobilinogen Urine 0.2 mg/dL (<2.0); pH Urine 5.5 (5.0-9.0)
[2021-09-05 13:42] LABS: Add Urine Microscopic? YES; Blood Urine Trace-Intact (Negative); Color Urine Dark Yellow (Yellow)
[2021-09-05 14:00] LABS: Bacteria Urine Trace /hpf; Mucus Urine Rare /lpf; Squamous Epithelial Cell Urine Many /hpf (Few); WBC Urine 0-3 /hpf (0-3)
[2021-09-05 16:30] LABS: Glucose Point of Care 145 mg/dl (65-105)
--- NOTE | 2021-09-05 16:37 | PM.PNCARD ---
Progress Note: A&P Assessment and Plan (1) Atrial fibrillation with RVR: Code(s): I48.91 - Unspecified atrial fibrillation Status: Acute Assessment and Plan: now in SR, plan cont metoprolol and consider shifting from Lovenox to Xarelto or apixaban if insurance approved it, otherwise will be on warfarin (2) Hypertension associated with diabetes: Code(s): E11.59 - Type 2 diabetes mellitus with other circulatory complications; I15.2 - Hypertension secondary to endocrine disorders Status: Acute Assessment and Plan: Blood pressure is reasonably controlled. (3) Morbid obesity with BMI of 40.0-44.9, adult: Code(s): E66.01 - Morbid (severe) obesity due to excess calories; Z68.41 - Body mass index [BMI] 40.0-44.9, adult Status: Acute Assessment and Plan: Dietary and lifestyle modifications for weight loss. (4) Obstructive sleep apnea: Code(s): G47.33 - Obstructive sleep apnea (adult) (pediatric) Status: Acute Assessment and Plan: On CPAP at home. Will consult respiratory therapy to have them set up inpatient CPAP while she is hospitalized. Subjective Date/time seen: 09/05/21 16:37 Interval history: no acute events Tele: back to SR Review of Systems Review of Systems: All systems reviewed & are unremarkable except as noted in HPI and below Exam Narrative: Patient awake alert oriented. Appears stated age Const: General: comfortable and no acute distress; No confusion Orientation/consciousness: No confusion HENMT: General nose exam: Normal nares present Eyes: Sclera: sclerae normal Neck: Neck: supple and no JVD Carotids: no bruits Chest: Other: No reproducible chest wall pain to palpation Resp: Auscultation: clear to auscultation bilaterally Cardio: Rate: regular rate Rhythm: regular rhythm Other: Distant heart tones GI: Inspection: non-distended Auscultation: normal bowel sounds Skin: General skin exam: normal color and rashes and/or lesions noted Neuro: General: No confusion Cranial nerves: Yes Normal hearing present Speech: normal speech Extrem: General: normal to inspection and no edema Psych: Mental Status: mental status grossly normal Objective Data Vital Signs Vital Signs: Vital Signs - 24 hr 09/04/21 20:00 09/04/21 20:57 09/04/21 21:33 Temperature 36.3 C L Pulse Rate 95 98 85 Respiratory Rate 17 Blood Pressure 158/83 H Pulse Oximetry 99 09/05/21 00:00 09/05/21 04:00 09/05/21 06:00 Temperature 36.3 C L Pulse Rate 87 93 96 Respiratory Rate 18 Blood Pressure 143/84 H Pulse Oximetry 98 09/05/21 08:00 09/05/21 08:06 09/05/21 12:00 Temperature Pulse Rate 102 H 88 78 Respiratory Rate Blood Pressure Pulse Oximetry 09/05/21 14:00 09/05/21 16:00 Temperature 36.8 C Pulse Rate 75 78 Respiratory Rate 14 Blood Pressure 136/83 Pulse Oximetry 97 Intake/Output Intake/Output: Intake & Output 09/02/21 09/03/21 09/04/21 09/05/21 23:59 23:59 23:59 23:59 Intake Total 1000 600 600 Output Total 400 400 Balance 1000 200 200 Meds/Results Medications: Active Medications Generic Name Dose Route Start Last Admin Trade Name Freq PRN Reason Stop Dose Admin Dextrose 12.5 gm 09/03/21 12:51 Dextrose 50% 25 Gm/50 Ml Syringe IV PUSH PRN PRN Hypoglycemia Protocol Enoxaparin Sodium 113 mg 09/03/21 18:00 09/05/21 07:34 Enoxaparin 120 Mg/0.8 Ml Syringe SUB-Q Not Given Q12H MEGAN Fluticasone Propionate 2 spray 09/05/21 08:03 Fluticasone Propionate 0.05% Na Spr 16 Gm Btl (*Bkc) NASAL DAILY PRN Allergy Symptoms Glucagon 1 mg 09/03/21 12:51 Glucagon For Inj 1 Mg Vial IM PRN PRN Hypoglycemia Protocol Glucose 15 gm 09/03/21 12:51 Glucose Oral Gel 15 Gm Of Glucse In 37.5 Gm Tube PO PRN PRN Hypoglycemia Protocol Dextrose 1,000 mls @ 100 mls/hr 09/03/21 12:51 Dextrose 5% 1
[2021-09-05] MEDS: ENOXAPARIN 120 MG/0.8 ML SYRINGE 113 MG SUB-Q (17:16)
--- NOTE | 2021-09-05 17:46 | WPDGIPROGNO ---
Progress Note: A&P Additional Plan GI [facility] for [facility] 05 Sep 2021 Denies AP, N, V, D, C, BRBPR, melena. NPO. HB Markel at bedside VSS soft/NT Hct 42. MCV 78. TBili 0.4, A/P 60, AST 54, ALT 40 Assessment and Plan A. Nausea, vomiting in patient with T2DM: - Symptoms resolved - Increase diet - Consider EGD 09/07/2021 - PPI - Improved glycemic control - May need Reglan B. Abnormal LFT's and abnormal imaging-liver: - Hepatic Steatosis on CT - LFT increase minimal; follow for now C. GERD: - PPI - EGD to evaluate for esophagitis and Harris's esophagus D. Microcytosis: - No anemia - Check B12, folate, ferritin and iron panel E. Abnormal imaging-digestive: CT with diverticulosis; observe. PARADISE Rosado [phone] Subjective Date/time seen: 09/05/21 17:46 Objective Data Vital Signs Vital Signs: Vital Signs - 24 hr 09/04/21 20:00 09/04/21 20:57 09/04/21 21:33 Temperature 36.3 C L Pulse Rate 95 98 85 Respiratory Rate 17 Blood Pressure 158/83 H Pulse Oximetry 99 09/05/21 00:00 09/05/21 04:00 09/05/21 06:00 Temperature 36.3 C L Pulse Rate 87 93 96 Respiratory Rate 18 Blood Pressure 143/84 H Pulse Oximetry 98 09/05/21 08:00 09/05/21 08:06 09/05/21 12:00 Temperature Pulse Rate 102 H 88 78 Respiratory Rate Blood Pressure Pulse Oximetry 09/05/21 14:00 09/05/21 16:00 Temperature 36.8 C Pulse Rate 75 78 Respiratory Rate 14 Blood Pressure 136/83 Pulse Oximetry 97 Intake/Output Intake/Output: Intake & Output 09/02/21 09/03/21 09/04/21 09/05/21 23:59 23:59 23:59 23:59 Intake Total 1000 600 600 Output Total 400 400 Balance 1000 200 200 Meds/Results Medications: Active Medications Generic Name Dose Route Start Last Admin Trade Name Freq PRN Reason Stop Dose Admin Dextrose 12.5 gm 09/03/21 12:51 Dextrose 50% 25 Gm/50 Ml Syringe IV PUSH PRN PRN Hypoglycemia Protocol Enoxaparin Sodium 113 mg 09/03/21 18:00 09/05/21 17:16 Enoxaparin 120 Mg/0.8 Ml Syringe SUB-Q 113 mg Q12H MEGAN Administration Fluticasone Propionate 2 spray 09/05/21 08:03 Fluticasone Propionate 0.05% Na Spr 16 Gm Btl (*Bkc) NASAL DAILY PRN Allergy Symptoms Glucagon 1 mg 09/03/21 12:51 Glucagon For Inj 1 Mg Vial IM PRN PRN Hypoglycemia Protocol Glucose 15 gm 09/03/21 12:51 Glucose Oral Gel 15 Gm Of Glucse In 37.5 Gm Tube PO PRN PRN Hypoglycemia Protocol Dextrose 1,000 mls @ 100 mls/hr 09/03/21 12:51 Dextrose 5% 1,000 Ml IVPB PRN PRN Hypoglycemia Protocol Ciprofloxacin/Dextrose 200 mls @ 200 mls/hr 09/04/21 09:00 09/05/21 17:16 Cipro 400 Mg/D5w 200 Ml IVPB 200 mls/hr Q8H MEGAN Administration Metronidazole 500 mg in 100 mls @ 100 mls/hr 09/04/21 10:00 09/05/21 17:15 Flagyl 500 Mg/Iso Soln 100 Ml IVPB 100 mls/hr Q8H MEGAN Administration Insulin Aspart 3 - 6 units 09/04/21 08:00 09/05/21 16:33 Insulin Aspart (*Bkc) 100 Units/Ml SUB-Q Not Given TIDWM MEGAN Protocol Metoprolol Tartrate 25 mg 09/03/21 21:00 09/05/21 08:06 Metoprolol Tartrate 25 Mg Tablet PO 25 mg Q12HR MEGAN Administration Miscellaneous Information 1 each 09/05/21 00:01 Tolnaftate (Sub For Nystatin) Powder Needs Site Of Application On Order Please XX 10/05/21 00:00 CLARIFY MEGAN Ondansetron HCl 4 mg 09/03/21 12:51 09/05/21 10:14 Ondansetron Inj 4 Mg/2 Ml Vial IV PUSH 4 mg Q4H PRN Administration Nausea Pantoprazole Sodium 40 mg 09/05/21 09:00 09/05/21 10:14 Pantoprazole Sodium Iv 40 Mg Vial IV PUSH 40 mg QAM MEGAN Administration Tolnaftate 1 applic 09/05/21 09:00 09/05/21 09:05 Tolnaftate 1% Powder 45 Gm Btl TOPICAL Not Given Q12HR MEGAN Radiology Results: ITS Impressions Chest X-Ray 09/03/21 09:15 IMPRESSION: 1. Mild atelectasis of the left lung base. Abdomen/Pelvis CT 09/03/21 11:11 IMPRESSION: 1. No CT
[2021-09-05 20:45] LABS: Glucose Point of Care 176 mg/dl (65-105)
[2021-09-05] MEDS: TOLNAFTATE 1% POWDER 45 GM BTL 1 APPLIC TOPICAL (21:49)
[2021-09-06] VITALS (10 sets, daily range): BP systolic 128–154; BP diastolic 52–58; PULSE 59–79; RESP 18; TEMP 36.1–36.8; O2SAT 95–98
[2021-09-06] MEDS: CIPROFLOXACIN 400 MG/D5W 200ML 200 ML 200 MG IVPB ×3 (01:04→17:13)
[2021-09-06] MEDS: metroNIDAZOLE 500 MG/ISO 100ML 500 MG/100 ML BAG 100 MG IVPB ×3 (02:08→17:14)
[2021-09-06] MEDS: METOPROLOL TARTRATE 25 MG TABLET PO ×2 (08:14→20:47)
[2021-09-06] MEDS: PANTOPRAZOLE SODIUM IV 40 MG VIAL IV PUSH (08:14)
[2021-09-06] MEDS: TOLNAFTATE 1% POWDER 45 GM BTL 1 APPLIC TOPICAL ×2 (08:14→20:48)
[2021-09-06] MEDS: ENOXAPARIN 120 MG/0.8 ML SYRINGE 113 MG SUB-Q ×2 (08:14→17:14)
[2021-09-06 08:20] LABS: Alanine Aminotransferase 45 U/L (6-35); Albumin Level 4.3 g/dL (3.5-5.1); Alkaline Phosphatase 60 U/L (38-126); Anion Gap 8 mmol/L (8-16); Aspartate Amino Transferase 56 U/L (14-36); Basophils Absolute Auto 0.1 K/mm3 (0.0-0.1); Basophils Percent Auto 0.7 % (0.2-1.2); Bilirubin,Total 0.4 mg/dL (0.2-1.3); Blood Urea Nitrogen 11 mg/dL (7-17); Calcium 8.6 mg/dL (8.4-10.2); Carbon Dioxide 27 mmol/L (22-30); Chloride 102 mmol/L (98-107); Eosinophils Absolute Auto 0.1 K/mm3 (0-0.3); Eosinophils Percent Auto 1.4 % (0-4.4); Estimated CRCL calculation 90 ml/min; Estimated Glomerular Filt Rate > 60; Glucose 147 mg/dL (65-110); Hematocrit 40.4 % (37.0-47.0); Hemoglobin 12.2 g/dL (12.0-15.0); Immature Granulocyte Absolute 0.05 K/mm3 (0.00-0.031); Immature Granulocyte Percent A 0.5 % (0-0.5); Lymphocytes Absolute Auto 2.24 K/mm3 (0.9-3.2); Lymphocytes Percent Auto 23.8 % (18.3-44.2); Mean Corpuscular HGB Conc 30.2 g/dl (32-36); Mean Corpuscular Hemoglobin 23.6 pg (26-34); Mean Platelet Volume 10.9 fl (7.4-10.4); Monocytes Percent Auto 10.9 % (2.6-8.5); Neutrophils Absolute Auto 5.9 K/mm3 (1.3-6.7); Neutrophils Percent Auto 62.7 % (45.5-73.1); Platelet Count Result 247 k/mm3 (150-375); Potassium 3.8 mmol/L (3.4-5.0); Red Blood Count 5.18 M/mm3 (4.2-5.4); Red Cell Distribution Width 15.8 % (11.5-14.5); Sodium 137 mmol/L (137-145); White Blood Count 9.4 K/mm3 (4.5-10.0)
[2021-09-06 08:25] LABS: Glucose Point of Care 168 mg/dl (65-105)
[2021-09-06 09:14] LABS: Iron 68 ug/dL (37-170)
[2021-09-06 09:23] LABS: Percent Iron Saturation 16 % (20-50)
[2021-09-06] MEDS: OXYBUTYNIN CHLORIDE 5 MG TABLET BY MOUTH ×3 (09:36→17:15)
[2021-09-06] MEDS: PRAVASTATIN SODIUM 20 MG TABLET 40 MG BY MOUTH (09:36)
[2021-09-06] MEDS: GABAPENTIN 300 MG CAPSULE BY MOUTH ×3 (09:36→17:14)
[2021-09-06] MEDS: LORATADINE 10 MG TABLET BY MOUTH (09:37)
--- NOTE | 2021-09-06 11:15 | WPDGIPROGNO ---
Progress Note: A&P Additional Plan [facility] 06 Sep 2021 Denies AP, N, V, D, C, BRBPR, melena. Sergey po VSS soft/NT Hct 42->40. MCV 78. TBili 0.4, A/P 60, AST 54->56, ALT 40->45 B12 265, folate pending, ferritin 16 Assessment and Plan A. Nausea, vomiting in patient with T2DM: - Symptoms resolved - Sergey diet - EGD 09/07/2021 - PPI - Improved glycemic control B. Abnormal LFT's and abnormal imaging-liver: - Hepatic Steatosis on CT - LFT increase minimal; follow for now C. GERD: - PPI - EGD to evaluate for esophagitis and Harris's esophagus D. Microcytosis with iron and B12 deficiency: - No anemia - Replete B12 - IV iron - Consider colonoscopy at some point if not done in recent time frame E. Abnormal imaging-digestive: CT with diverticulosis; observe. The procedure of upper endoscopy, its indications, alternatives of barium studies and risks including perforation, bleeding, infection, reaction to medication as well as the possible need for blood or surgery were discussed with the patient prior to the procedure. Patient voices understanding, agrees to proceed and provides informed consent. Thanks, [facility] [phone] Subjective Date/time seen: 09/06/21 11:15 Objective Data Vital Signs Vital Signs: Vital Signs - 24 hr 09/05/21 12:00 09/05/21 14:00 09/05/21 16:00 Temperature 36.8 C Pulse Rate 78 75 78 Respiratory Rate 14 Blood Pressure 136/83 Pulse Oximetry 97 09/05/21 20:00 09/05/21 20:46 09/05/21 21:49 Temperature 35.9 C L Pulse Rate 77 65 65 Respiratory Rate 20 Blood Pressure 144/56 H Pulse Oximetry 90 09/06/21 00:00 09/06/21 04:00 09/06/21 04:19 Temperature 36.7 C Pulse Rate 59 L 63 64 Respiratory Rate 18 Blood Pressure 154/57 H Pulse Oximetry 98 09/06/21 08:00 09/06/21 08:14 Temperature Pulse Rate 61 78 Respiratory Rate Blood Pressure Pulse Oximetry Intake/Output Intake/Output: Intake & Output 09/03/21 09/04/21 09/05/21 09/06/21 23:59 23:59 23:59 23:59 Intake Total 6380 991 7106 620 Output Total 400 400 400 Balance 0386 943 2280 220 Meds/Results Medications: Active Medications Generic Name Dose Route Start Last Admin Trade Name Freq PRN Reason Stop Dose Admin Cyclobenzaprine HCl 10 mg 09/06/21 08:21 Cyclobenzaprine Hcl 10 Mg Tablet BY MOUTH TID PRN muscle spasms Dextrose 12.5 gm 09/03/21 12:51 Dextrose 50% 25 Gm/50 Ml Syringe IV PUSH PRN PRN Hypoglycemia Protocol Enoxaparin Sodium 113 mg 09/03/21 18:00 09/06/21 08:14 Enoxaparin 120 Mg/0.8 Ml Syringe SUB-Q 113 mg Q12H MEGAN Administration Fluticasone Propionate 2 spray 09/05/21 08:03 Fluticasone Propionate 0.05% Na Spr 16 Gm Btl (*Bkc) NASAL DAILY PRN Allergy Symptoms Gabapentin 300 mg 09/06/21 09:00 09/06/21 09:36 Gabapentin 300 Mg Capsule BY MOUTH 300 mg TID MEGAN Administration Glucagon 1 mg 09/03/21 12:51 Glucagon For Inj 1 Mg Vial IM PRN PRN Hypoglycemia Protocol Glucose 15 gm 09/03/21 12:51 Glucose Oral Gel 15 Gm Of Glucse In 37.5 Gm Tube PO PRN PRN Hypoglycemia Protocol Dextrose 1,000 mls @ 100 mls/hr 09/03/21 12:51 Dextrose 5% 1,000 Ml IVPB PRN PRN Hypoglycemia Protocol Ciprofloxacin/Dextrose 200 mls @ 200 mls/hr 09/04/21 09:00 09/06/21 09:32 Cipro 400 Mg/D5w 200 Ml IVPB Infused Q8H MEGAN Infusion Metronidazole 500 mg in 100 mls @ 100 mls/hr 09/04/21 10:00 09/06/21 09:35 Flagyl 500 Mg/Iso Soln 100 Ml IVPB 100 mls/hr Q8H MEGAN Administration Insulin Aspart 3 - 6 units 09/04/21 08:00 09/06/21 08:13 Insulin Aspart (*Bkc) 100 Units/Ml SUB-Q Not Given TIDWM MEGAN Protocol Loratadine 10 mg 09/06/21 09:00 09/06/21 09:37 Loratadine 10 Mg Tablet BY MOUTH 10 mg QAM MEGAN Administration Metoclopramide HCl 10 mg 09/06/21 11:30 Metoclopramide Hcl 10 Mg Tablet PO ACHS MEGAN Metoprolol
--- NOTE | 2021-09-06 11:40 | PM.IMPN ---
Progress Note: A&P Assessment and Plan (1) Atrial fibrillation with rapid ventricular response: Code(s): I48.91 - Unspecified atrial fibrillation Status: Resolved Assessment and Plan: Monitor vital signs, I&Os, neuro status, patient is a fall risk and patient is a bleeding risk Monitor PTT, Serum electrolytes, and cbc Keep serum potassium >4 and keep magnesium >2 Monitor anticoagulation therapy Consuled Cardiology for further management, appreciate assistance and recommendations echocardiogram reviewed revealed diastolic dysfunction LVEF 65-70%. Patient continues with metoprolol 25 mg b.i.d. DVT Px: Therapeutic Lovenox will be transitioned to Xarelto 20 mg daily pending insurance approval TSH WNL ---read resolving, heart rate controlled (2) Nausea & vomiting: Qualifiers: Vomiting type: unspecified Qualified Code(s): R11.2 - Nausea with vomiting, unspecified Code(s): R11.2 - Nausea with vomiting, unspecified Status: Acute Assessment and Plan: Monitor serum electrolytes, CBC, hemoglobin/hematocrit q.8 hours. If hemoglobin drops below 7 transfuse packed red blood cells Monitor for bloody bowel movements,chest pain,SOB or dizziness/lightheadedness Consulted GI for intractable nausea and vomiting with associated diarrhea, appreciate assistance and recommendations Pantoprazole BID Diet: Advanced as tolerated, diabetic diet Continue supportive care with antiemetics Plan for possible EGD on 09/07/2021 (3) Insulin dependent type 2 diabetes mellitus: Code(s): E11.9 - Type 2 diabetes mellitus without complications; Z79.4 - FPC (current) use of insulin Status: Acute Assessment and Plan: Hemoglobin A1c within the last month or so was 8.2%. Continue basal insulin. Initiate sliding scale insulin, Accu-Cheks, and hypoglycemic protocol. -well controlled in the hospital (4) Hypertension: Code(s): I10 - Essential (primary) hypertension Status: Acute Assessment and Plan: Blood pressures were reviewed and they are well controlled. (5) Obstructive sleep apnea on CPAP: Code(s): G47.33 - Obstructive sleep apnea (adult) (pediatric); Z99.89 - Dependence on other enabling machines and devices Status: Acute Assessment and Plan: CPAP will be provided for the patient to use while hospitalized. Subjective Date/time seen: 09/06/21 11:40 Patient was evaluated by Gastroenterology last night. Patient was able to increase her diet. She denies any nausea, vomiting upset stomach or diarrhea for the last 24 hours. Gastroenterology suggest an EGD on 09/07/2021. Continue Protonix, Reglan and make NPO tonight for EGD in the morning per Gastroenterology. No acute events reported by RN during the night Review of Systems Review of Systems: All systems reviewed & are unremarkable except as noted in HPI and below Exam Narrative: General: Chronically ill-appearing female sitting up in bed in no distress. Weight: 113.6 kg. BMI: 43. HEENT: PERRL, EOMI. Sclerae anicteric. Oral mucosa moist. Tacky mucous membranes. Oropharynx crowded. Neck: Supple. Exam a bit limited due to neck circumference. No obvious JVD, bruits, or thyromegaly. Respiratory: Respirations are nonlabored and lungs are clear to auscultation. Cardiovascular: Irregularly irregular rate and rhythm. No obvious murmur. Gastrointestinal: Abdomen is soft, morbidly obese, and nondistended with positive bowel sounds. She is tender to palpation over the lower abdomen, mainly about the panniculus. No erythema or wounds noted. Skin: Warm and dry. No rash or lesions on limited exam. Extremities: No cyanosis, clubbing, or edema. Radial and pedal pulses intact. Neurological: Alert. Cranial nerves 2-12 are grossly intact. No gross focal deficits to casual conversation. Psychiatric: Appropriate mood and affect. Objective Data Vital Signs Vital Signs: Vital Signs - 24 hr
[2021-09-06 11:56] LABS: Glucose Point of Care 219 mg/dl (65-105)
[2021-09-06] MEDS: METOCLOPRAMIDE HCL 10 MG TABLET PO ×3 (12:05→20:47)
[2021-09-06] MEDS: INSULIN ASPART (*BKC) 100 UNITS/ML SUB-Q (12:05)
[2021-09-06 17:17] LABS: Glucose Point of Care 159 mg/dl (65-105)
[2021-09-06 20:52] LABS: Glucose Point of Care 181 mg/dl (65-105)
--- NOTE | 2021-09-06 22:22 | PCRCNOTE ---
Pt states that she does not like wearing the CPAP mask and feels fine without it. Pt was advised to let her nurse know if she changes her mind.
[2021-09-07] VITALS (9 sets, daily range): BP systolic 103–146; BP diastolic 40–56; PULSE 55–77; RESP 18–25; TEMP 36.3–36.9; O2SAT 97–100
[2021-09-07] MEDS: CIPROFLOXACIN 400 MG/D5W 200ML 200 ML 200 MG IVPB ×2 (01:04→09:34)
[2021-09-07] MEDS: metroNIDAZOLE 500 MG/ISO 100ML 500 MG/100 ML BAG 100 MG IVPB ×2 (02:10→11:46)
[2021-09-07 07:18] LABS: Basophils Absolute Auto 0.1 K/mm3 (0.0-0.1); Basophils Percent Auto 0.9 % (0.2-1.2); Eosinophils Absolute Auto 0.2 K/mm3 (0-0.3); Eosinophils Percent Auto 2.1 % (0-4.4); Hemoglobin 12.4 g/dL (12.0-15.0); Immature Granulocyte Absolute 0.03 K/mm3 (0.00-0.031); Immature Granulocyte Percent A 0.3 % (0-0.5); Lymphocytes Absolute Auto 1.91 K/mm3 (0.9-3.2); Lymphocytes Percent Auto 21.1 % (18.3-44.2); Mean Corpuscular HGB Conc 30.2 g/dl (32-36); Mean Corpuscular Hemoglobin 23.8 pg (26-34); Mean Corpuscular Volume 78.5 fl (80-100); Monocytes Percent Auto 11.1 % (2.6-8.5); Neutrophils Absolute Auto 5.8 K/mm3 (1.3-6.7); Neutrophils Percent Auto 64.5 % (45.5-73.1); Platelet Count Result 261 k/mm3 (150-375); Red Blood Count 5.22 M/mm3 (4.2-5.4); Red Cell Distribution Width 15.9 % (11.5-14.5); White Blood Count 9.1 K/mm3 (4.5-10.0)
[2021-09-07 07:36] LABS: Alanine Aminotransferase 49 U/L (6-35); Albumin Level 4.4 g/dL (3.5-5.1); Alkaline Phosphatase 61 U/L (38-126); Anion Gap 9 mmol/L (8-16); Aspartate Amino Transferase 56 U/L (14-36); Bilirubin,Total 0.3 mg/dL (0.2-1.3); Blood Urea Nitrogen 11 mg/dL (7-17); Calcium 8.7 mg/dL (8.4-10.2); Carbon Dioxide 25 mmol/L (22-30); Chloride 103 mmol/L (98-107); Estimated CRCL calculation 104 ml/min; Estimated Glomerular Filt Rate > 60; Glucose 167 mg/dL (65-110); Potassium 3.7 mmol/L (3.4-5.0); Sodium 137 mmol/L (137-145)
[2021-09-07 08:51] LABS: Glucose Point of Care 171 mg/dl (65-105)
[2021-09-07] MEDS: OXYBUTYNIN CHLORIDE 5 MG TABLET BY MOUTH (08:57)
[2021-09-07] MEDS: PRAVASTATIN SODIUM 20 MG TABLET 40 MG BY MOUTH (08:57)
[2021-09-07] MEDS: LORATADINE 10 MG TABLET BY MOUTH (08:57)
[2021-09-07] MEDS: PANTOPRAZOLE SODIUM IV 40 MG VIAL IV PUSH (08:57)
[2021-09-07] MEDS: METOPROLOL TARTRATE 25 MG TABLET PO (08:58)
[2021-09-07] MEDS: GABAPENTIN 300 MG CAPSULE BY MOUTH (08:58)
[2021-09-07] MEDS: TOLNAFTATE 1% POWDER 45 GM BTL 1 APPLIC TOPICAL (08:59)
[2021-09-07] MEDS: LACTATED RINGERS 1,000 ML 150 ML IV CONT (10:12)
[2021-09-07 10:13] LABS: Glucose Point of Care 199 mg/dl (65-105)
--- NOTE | 2021-09-07 10:14 | PC.NURSE ---
To GI Lab per wheelchair, IV infusing antibiotics. 22 LFA intact and patent. Report given to JOSH Ross. Patient taken down around 1000 am.
--- NOTE | 2021-09-07 10:15 | WPDANESEPPF ---
Anes - Initial Pre Proc Eval Procedure: Operation Date: 09/07/21 14:45 Proposed Procedures p Esophagogastroduodenoscopy - Steven Tarango MD Date/Time: 09/07/21 10:15 Surgeon: Manuel Luu MD Pre Op Diagnosis: AFIB w/RVR, N/V, DM Patient Data Age: 61 Gender: F Height: 1.63 m Weight: 119 kg Last Vital Signs Temp 97.3 F L 09/07/21 10:14 Pulse 61 09/07/21 10:14 Resp 20 09/07/21 10:14 BP 143/48 H 09/07/21 10:14 Pulse Ox 100 09/07/21 10:14 Allergies Allergy/AdvReac Type Severity Reaction Status Date / Time codeine Allergy Severe Hives Verified 09/03/21 15:02 sulfamethizole Allergy Severe Hives Verified 09/03/21 15:02 trimethoprim Allergy Severe Hives Verified 09/03/21 15:02 Penicillins Allergy Mild Rash Verified 09/03/21 15:02 sulfamethoxazole Allergy Mild Vomiting Verified 09/03/21 15:02 levofloxacin AdvReac Severe Vomiting Verified 09/03/21 15:02 Home Medications Medication Instructions Recorded Confirmed Type cholecalciferol (vitamin D3) 50 50 mcg PO DAILY #90 tablet 05/05/20 09/03/21 Rx mcg (2,000 unit) tablet loratadine 10 mg tablet See Rx Instructions .ROUTE 06/02/20 09/03/21 Rx .COMPLEX #90 tablet insulin syringe-needle U-100 0.5 See Rx Instructions .ROUTE 07/17/20 09/03/21 Rx mL 30 gauge x 1/2 .COMPLEX #100 syringe gabapentin 300 mg capsule See Rx Instructions .ROUTE 09/04/20 09/03/21 Rx .COMPLEX #180 cap fluticasone propionate 50 2 spray NASAL DAILY PRN 09/23/20 09/03/21 History mcg/actuation nasal spray,suspension insulin glargine 100 unit/mL (3 See Rx Instructions .ROUTE 02/05/21 09/03/21 Rx mL) subcutaneous pen .COMPLEX #15 syringe oxybutynin chloride 5 mg tablet See Rx Instructions .ROUTE 03/04/21 09/03/21 Rx .COMPLEX #270 tablet omeprazole 20 mg capsule,delayed See Rx Instructions .ROUTE 03/18/21 09/03/21 Rx release .COMPLEX #90 cap pravastatin 40 mg tablet See Rx Instructions .ROUTE 04/03/21 09/03/21 Rx .COMPLEX #90 tablet meclizine 25 mg tablet See Rx Instructions .ROUTE 06/18/21 09/03/21 Rx .COMPLEX #270 tablet cyclobenzaprine 10 mg tablet See Rx Instructions .ROUTE 06/30/21 09/03/21 Rx .COMPLEX #270 tablet metformin 1,000 mg tablet See Rx Instructions .ROUTE 06/30/21 09/03/21 Rx .COMPLEX #180 tablet pen needle, diabetic 29 gauge x See Rx Instructions .ROUTE 07/01/21 09/03/21 Rx 1/2 .COMPLEX #100 syringe nystatin 100,000 unit/gram topical 1 applic TOPICAL BID #60 gm 07/23/21 09/03/21 Rx powder ondansetron HCl 8 mg tablet 8 mg PO Q12H PRN #30 tablet 07/23/21 09/03/21 Rx rimegepant 75 mg disintegrating 75 mg PO DAILY PRN #8 tablet 07/23/21 09/03/21 Rx tablet tramadol 50 mg tablet 50 mg PO Q6H PRN #60 tablet 08/12/21 09/03/21 Rx cholecalciferol (vitamin D3) 1,250 1,250 mcg PO WEEKLY #8 cap 08/14/21 09/03/21 Rx mcg (50,000 unit) capsule Laboratory Tests 09/06/21 09/06/21 09/06/21 11:53 17:13 20:46 WBC RBC Hgb Hct MCV MCH MCHC RDW Plt Count MPV Immature Gran % (Auto) Neut % (Auto) Lymph % (Auto) [place] % (Auto) Eos % (Auto) Baso % (Auto) Lymph # (Auto) [place] # (Auto) Eos # (Auto) Baso # (Auto) Abs Immat Gran (auto) Absolute Neuts (auto) Absolute Nucleated RBC Nucleated RBC % Sodium Potassium Chloride Carbon Dioxide Anion Gap BUN Creatinine Estim Creat Clear Calc Estimated GFR Glucose POC Capillary Glucose 219 mg/dl H mg/dl 159 mg/dl H mg/dl 181 mg/dl H mg/dl (65-105) (65-105) (65-105) Calcium Total Bilirubin AST ALT Ailyn
[2021-09-07 11:44] LABS: Glucose Point of Care 173 mg/dl (65-105)
[2021-09-07] MEDS: METOCLOPRAMIDE HCL 10 MG TABLET PO (11:47)
--- NOTE | 2021-09-07 12:42 | PM.DS ---
DS: Admitting Diagnosis Discharge Date 09/07/2021 Admitting Diagnosis AFib RVR Intractable nausea and vomiting Diarrhea DS: Discharge Diagnosis Discharge Diagnosis (1) Atrial fibrillation with rapid ventricular response: Code(s): I48.91 - Unspecified atrial fibrillation Status: Resolved Assessment and Plan: Monitor vital signs, I&Os, neuro status, patient is a fall risk and patient is a bleeding risk Monitor PTT, Serum electrolytes, and cbc Keep serum potassium >4 and keep magnesium >2 Monitor anticoagulation therapy Consuled Cardiology for further management, appreciate assistance and recommendations echocardiogram reviewed revealed diastolic dysfunction LVEF 65-70%. Patient continues with metoprolol 25 mg b.i.d. DVT Px: Therapeutic Lovenox will be transitioned to Xarelto 20 mg daily pending insurance approval TSH WNL ---read resolving, heart rate controlled (2) Nausea & vomiting: Qualifiers: Vomiting type: unspecified Qualified Code(s): R11.2 - Nausea with vomiting, unspecified Code(s): R11.2 - Nausea with vomiting, unspecified Status: Acute Assessment and Plan: Monitor serum electrolytes, CBC, hemoglobin/hematocrit q.8 hours. If hemoglobin drops below 7 transfuse packed red blood cells Monitor for bloody bowel movements,chest pain,SOB or dizziness/lightheadedness Consulted GI for intractable nausea and vomiting with associated diarrhea, appreciate assistance and recommendations Pantoprazole BID Diet: Advanced as tolerated, diabetic diet Continue supportive care with antiemetics Plan for possible EGD on 09/07/2021 (3) Insulin dependent type 2 diabetes mellitus: Code(s): E11.9 - Type 2 diabetes mellitus without complications; Z79.4 - terminal makeup operator (current) use of insulin Status: Acute Assessment and Plan: Hemoglobin A1c within the last month or so was 8.2%. Continue basal insulin. Initiate sliding scale insulin, Accu-Cheks, and hypoglycemic protocol. -well controlled in the hospital (4) Hypertension: Code(s): I10 - Essential (primary) hypertension Status: Acute Assessment and Plan: Blood pressures were reviewed and they are well controlled. (5) Obstructive sleep apnea on CPAP: Code(s): G47.33 - Obstructive sleep apnea (adult) (pediatric); Z99.89 - Dependence on other enabling machines and devices Status: Acute Assessment and Plan: CPAP will be provided for the patient to use while hospitalized. DS: Summary Hospital Course Reason for hospitalization: Intractable nausea and vomiting and AFib RVR Hospital Course: Patient is a 61-year-old female with a past medical history of AFib, diabetes mellitus type 2, insulin dependent with peripheral neuropathy, hyperlipidemia, GERD and DEVON on CPAP presented to the Emergency that further evaluation shortness of breath, nausea, vomiting intractable diarrhea. She is fairly decent historian however some of the information was gathered from her significant other at bedside. Patient reports intermittent nausea and vomiting as well as loose stools for the past week and a half. Patient reports multiple stools during the day with multiple episodes of emesis, nonbloody non biliary. Patient was unable to drink water as she would vomit yellow stomach acid. Patient also reported vague discomfort throughout her lower abdomen abdomen. Patient has also been feeling short of breath and was found to be in AFib RVR upon arrival to the emergency department. She was administered 1 dose of 5 mg IV Lopressor and started on metoprolol tartrate 25 mg. 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 However she continued to be nauseated for greater than 24 hours during her hospitalization. Patient was started on IV antibiotics Cipro and Flagyl. Heart rate was maintained with medications. Patient denies any fever, chills, sweats, sick contacts or recent an
[2021-09-09 22:15] LABS: Red Blood Cell Folate 743 ng/mL RBC (>280)
== END 2021-09-07 13:30 | disposition home or self-care (01) | DRG 392 ==
LOC: ANHED 13:06 → ANH3MEDSUR 14:13
PROVIDERS: Internal Medicine Cardiovascular Disease; Internal Medicine Gastroenterology; Physician Assistant; Admitting Provider Internal Medicine; Emergency Provider Emergency Medicine; PCP Internal Medicine; Visit Provider Nurse Practitioner Family
PROC: 0DJ08ZZ Inspection of Upper Intestinal Tract, Via Natural or Artificial Opening Endoscopic (ICD-10-PCS; CPT 43235; principal; 2021-09-07 14:45)
DX: K29.70 Gastritis, unspecified, without bleeding (principal); Z68.42 Body mass index [BMI] 45.0-49.9, adult; I48.91 Unspecified atrial fibrillation; Z20.822 Contact with and (suspected) exposure to COVID-19; I10 Essential (primary) hypertension; G47.33 Obstructive sleep apnea (adult) (pediatric); E11.42 Type 2 diabetes mellitus with diabetic polyneuropathy; E78.5 Hyperlipidemia, unspecified; K21.9 Gastro-esophageal reflux disease without esophagitis; E11.65 Type 2 diabetes mellitus with hyperglycemia; E66.01 Morbid (severe) obesity due to excess calories; E11.59 Type 2 diabetes mellitus with other circulatory complications; E53.8 Deficiency of other specified B group vitamins; I15.2 Hypertension secondary to endocrine disorders; Z96.611 Presence of right artificial shoulder joint; Z79.4 Long term (current) use of insulin; Z90.49 Acquired absence of other specified parts of digestive tract; Z90.710 Acquired absence of both cervix and uterus; Z87.891 Personal history of nicotine dependence
CPT/HCPCS: 36415; 71046; 74177; 80053; 81001; 82607; 82728; 82747; 82948; 83540; 83550; 83605; 83690; 83735; 84436; 84439; 84443; 84484; 85025; 85027; 85610; 85730; 88305; 93005; 96361; 96365; 96366; 96367; 96372; 96375; 96376; 99285; A9270; C8929; C9113; C9803; G0378; J0744; J1650; J1815; J2001; J2405; J2704; J2765; J7030; J7120; Q9957; Q9967; U0003; U0005

== ENCOUNTER 2022-08-03 09:52 | Outpatient (CLI) | payer OTHER, SELFPAY ==
--- NOTE | ~2022-08-03 | MM_ITS ---
EXAMINATION: MM screening [place] BI w margaret HISTORY: Screening mammogram TECHNIQUE: Craniocaudal and mediolateral oblique 3-D tomosynthesis images were obtained and synthetic 2-D images were generated. CAD analysis was submitted and interpreted. COMPARISON: 05/20/2021, 11/19/2019, 08/01/2017 bilateral screening mammogram examinations BREAST PARENCHYMAL COMPOSITION: The breasts are almost entirely fatty. FINDINGS: There is no evidence of suspicious mass, calcification, or architectural distortion to sugg est malignancy in either breast. There has been no suspicious interval change. IMPRESSION: 1. No mammographic evidence of malignancy. 2. Recommend routine screening mammography in one year. BI-RADS Category 1: Negative Reviewed, dictated and finalized at location A.
== END 2022-08-03 09:53 | disposition home or self-care (01) ==
LOC: ANHIMG 09:54
PROVIDERS: PCP Internal Medicine; Visit Provider Internal Medicine
DX: Z12.31 Encounter for screening mammogram for malignant neoplasm of breast (principal)
CPT/HCPCS: 77063; 77067

== ENCOUNTER 2024-03-22 08:18 | Outpatient (CLI) | payer OTHER, SELFPAY ==
--- NOTE | ~2024-03-22 | US_ITS ---
EXAMINATION: US soft tissue abdomen DATE: 03/22/2024 08:34 INDICATION: Umbilical hernia without obstruction or gangrene. Abdominal pain. TECHNIQUE: Multiple grayscale and Doppler ultrasound images of the abdomen were obtained. COMPARISON: CT abdomen and pelvis 09/03/2021 FINDINGS: There is a periumbilical ventral hernia. IMPRESSION: 1. Periumbilical ventral hernia. Reviewed, dictated and finalized at location A. INE INKER
== END 2024-03-22 08:19 | disposition home or self-care (01) ==
LOC: MICIMG 08:19
PROVIDERS: PCP Family Medicine; Visit Provider Family Medicine
DX: K42.9 Umbilical hernia without obstruction or gangrene (principal)
CPT/HCPCS: 76705

== ENCOUNTER 2024-10-18 10:24 | Outpatient (RCR) | payer OTHER, SELFPAY ==
[2024-10-18 10:38] VITALS: BMI 38.2
[2024-10-18 10:45] VITALS: BMI 38.2
== END 2025-01-07 12:24 | disposition home or self-care (01) ==
LOC: ANHDMC 10:24
PROVIDERS: PCP Family Medicine; Visit Provider Family Medicine
DX: E11.51 Type 2 diabetes mellitus with diabetic peripheral angiopathy without gangrene (principal); Z71.3 Dietary counseling and surveillance
CPT/HCPCS: 97802